=== PATIENT | male | born 1965 | race Caucasian/White ===

== ENCOUNTER 2016-07-18 23:16 | Emergency (ER) | payer BC ==
--- NOTE | ~2016-07-18 | CT16 ---
STS. [facility] A Service of [facility] & [facility] / [facility] RADIOLOGY TEXT RESULTS PATIENT: JEWELS FORTUNE LOCATION: SED : [birth year] UNIT #: [id number] AGE: [address]: Jim Ulrich MD SEX: M ORDER DR: [id number] [address] [address] [id number] E MR#: [id number] Acc #: [id number] NAME: JEWELS FORTUNE : 1965 SEX: M STUDY DATE/TIME: 07/18/2016 23:59 UNIT: SED ROOM: STUDY DESCRIPTION: CT Angio Chest for PE Attending Physician: Jim Ulrich M.D. Ordering Physician: Jim Ulrich M.D. Primary Care Physician: Kaleb Quiñonez M.D. MEDICAL IMAGING REPORT This report is preliminary unless electronic signature is present. EXAM CT chest with contrast, pulmonary arteriography protocol, 07/18/2016 HISTORY 51-year-old male in the ED complaining of new onset shortness of air with cough and congestion beginning earlier today. Clinical asthma attack. Elevated D-dimer is noted. He has a prior history of coronary artery disease with stent placement. TECHNIQUE CT examination of the chest with IV contrast using pulmonary arteriography protocol. 3-D CTA images of the pulmonary arteries were reformatted in multiple planes. This CT exam was performed with one or more of the following radiation dose reduction techniques: Automatic exposure control, adjustment of mA and/or kV according to patient size, and iterative reconstruction. FINDINGS The examination is technically limited due to delayed contrast bolus timing, resulting in preferential opacification of the left heart and aorta rather than the right heart and pulmonary arteries. No pulmonary artery thrombus is present within the main pulmonary arteries on the right or left, or the largest central pulmonary arteries. Medium and smaller pulmonary arteries within the mid and peripheral lung zones cannot be assessed on this exam. Thoracic aorta is normal in caliber. Heart size normal. No pericardial effusion. The lungs are expanded and clear. No visible pulmonary infiltrates, pneumothorax or pleural effusion. No suspicious mass or adenopathy within the chest. Limited upper abdominal images show a food-distended stomach. Cholecystectomy. [facility] A Service of [facility] & [facility] / [facility] RADIOLOGY TEXT RESULTS PATIENT: JEWELS FORTUNE LOCATION: [place] : [birth year] UNIT #: [id number] AGE: [address]: Jim Ulrich MD SEX: M ORDER DR: IMPRESSION 1. Nondiagnostic examination for the exclusion of pulmonary embolism in all but the main or large central pulmonary arteries. No central PE is seen. 2. No active disease in the chest. Dictated by... Mario Max M.D. THIS IS AN ELECTRONICALLY VERIFIED REPORT Mario Max M.D. at 07/19/2016 6:01 AM EMERITA/dann TD: 07/19/2016 00:41 JOB #: [id number] MEDICAL IMAGING REPORT Page 1 of 1
--- NOTE | ~2016-07-18 | EKG ---
PATIENT: JEWELS FORTUNE UNIT #: [id number] Ventricular Rate: 86 BPM Atrial Rate: 86 BPM P-R Interval: 176 ms QRS Duration: 96 ms Q-T Interval: 388 ms QTC Calculation(Bezet): 464 ms P Ladd: 37 degrees Calculated R Ladd: -55 degrees Calculated T Ladd: 57 degrees Diagnosis Line: Normal sinus rhythm Diagnosis Line: Pulmonary disease pattern Diagnosis Line: Left anterior fascicular block Nonspecific ST Diagnosis Line: abnormality Diagnosis Line: Abnormal ECG Diagnosis Line: No previous ECGs available Diagnosis Line: Confirmed by TAVO ARIAS MD ([id number]) on 07/19/2016 Diagnosis Line: 2:48:53 PM INTERPRETING MD: JUANA DUKE
--- NOTE | ~2016-07-18 | CR72 ---
[facility]. [facility] A Service of [facility] & [facility] RADIOLOGY TEXT RESULTS PATIENT: JEWELS FORTUNE LOCATION: SED : [birth year] UNIT #: [id number] AGE: [address]: Jim Ulrich MD SEX: M ORDER DR: [id number] [address] [address] [id number] E MR#: [id number] Acc #: [id number] NAME: JEWELS FORTUNE : 1965 SEX: M STUDY DATE/TIME: 07/18/2016 23:28 UNIT: SED ROOM: STUDY DESCRIPTION: CR Chest Single View Portable Attending Physician: Jim Ulrich M.D. Ordering Physician: Jim Ulrich M.D. Primary Care Physician: Kaleb Quiñonez M.D. MEDICAL IMAGING REPORT This report is preliminary unless electronic signature is present. EXAM Chest x-ray 07/18/2016 HISTORY 51-year-old male in the ED complaining of new onset cough, congestion and shortness of air today. TECHNIQUE AP portable chest x-ray. FINDINGS Heart size and pulmonary vascularity are normal. The lungs appear clear. No visible pulmonary infiltrate or pleural effusion. No change since 12/16/2014. IMPRESSION Negative chest. Dictated by... Mario Max M.D. THIS IS AN ELECTRONICALLY VERIFIED REPORT Mario Max M.D. at 07/19/2016 6:01 AM EMERITA/dann TD: 07/19/2016 00:02 JOB #: [id number] MEDICAL IMAGING REPORT Page 1 of 1
[2016-07-18 23:04] LABS: BASOPHIL# 0.1 X10e3 (0-0.3); DIFF IND NO; EOSINOPHIL# 0.1 X10e3 (0-0.7); EOSINOPHIL% 1.3 % (0.0-7.0); HEMATOCRIT 42.1 % (38.0-50.0); HEMOGLOBIN 14.8 gm/dL (13.0-16.0); LYMPHOCYTE# 2.6 X10e3 (1.0-3.5); LYMPHOCYTE% 34.3 % (17.0-45.0); MEAN CELL VOLUME 85.2 FL (83-96); MEAN CORPUSCULAR HGB CONC 35.2 g/dL (30-36); MEAN PLATELET VOLUME 8.9 FL (6.5-11.5); MONOCYTE# 0.5 X10e3 (0-1.0); NEUTROPHIL# 4.3 X10e3 (1.5-7.1); NEUTROPHIL% 56.4 % (40-75); PLATELET COUNT 206 X10e3 (140-420); RED BLOOD COUNT 4.94 X10e (3.90-5.60); RED CELL DISTRIBUTION WIDTH 13.1 % (11.0-15.5); WHITE BLOOD COUNT 7.7 X10e3 (4.0-10.5)
[2016-07-18 23:06] LABS: INR 0.9; PROTHROMBIN TIME (PATIENT) 10.3 SECONDS (9.5-12.4)
[2016-07-18 23:07] LABS: POC - CKMB <1.0 ng/mL (0.0-7.9); POC - TROPONIN <0.05 ng/mL (<=0.05)
[2016-07-18 23:13] LABS: BILIRUBIN,TOTAL 0.3 mg/dL (0.2-2.0); CREATININE SERUM 0.7 mg/dL (0.6-1.4); GLOM FILT RATE Estimated 110.9 mL/min (>60); PARTIAL THROMBOPLASTIN TIME 26.9 SECONDS (25.6-38.1); POTASSIUM 3.5 mmol/L (3.5-5.1); PROTEIN TOTAL SERUM 7.1 g/dL (6.0-8.3)
[~2016-07-18 23:16] MED LIST: ACCUPRIL; ACCUPRIL PO; ACCUPRIL10 MG PO; ALLEGRA; ALLEGRA PO; AMOXICILLIN500 M1; ASPIRIN PO; ASPIRIN81 M1 PO; AUGMENTIN 400-100 M1 PO; BACTROBAN15 GM TOP; CIPRO PO; CLEOCIN HCL300 M1 PO; CLEOCIN PO; CRESTOR; CRESTOR PO; FLEXERIL10 MG PO; GLUCOPHAGE XR500 MG PO; GLUCOTROL XL PO; IMDUR PO; IMDUR-ER30 MG PO; IMDUR120 MG; INSULIN R; LANTUS100 U/M1; LANTUS100 U/ML; LANTUS100 U/ML SUBQ; LOPID600 MG; LOPID600 MG PO; LOPRESSOR PO; LORTAB 5/500 TA1 TA1 PO; M.V.I. ADULT10 ML; MEDROL DOSEPAK4 MG; NITROGLYCERIN0.4 MG SL; NITROGYLCERIN SUBLINGUAL; NOVOLOG100 U/M2; PLAVIX; PREDNISONE5 MG/5 ML PO; ST. JOSEPH ASP325 MG; TAZTIA XT; TAZTIA XT300 MG PO; TOPROL XL50 MG; TRAMADOL HCL50 M1 PO; ZETIA; ZETIA PO
== END 2016-07-19 01:41 | disposition home or self-care (01) ==
LOC: SED 23:16
DX: J45.901 Unspecified asthma with (acute) exacerbation (principal); I10 Essential (primary) hypertension; E78.5 Hyperlipidemia, unspecified; E11.9 Type 2 diabetes mellitus without complications; Z86.79 Personal history of other diseases of the circulatory system; Z90.49 Acquired absence of other specified parts of digestive tract; Z87.891 Personal history of nicotine dependence; Z88.1 Allergy status to other antibiotic agents; Z88.8 Allergy status to other drugs, medicaments and biological substances; Z79.899 Other long term (current) drug therapy; Z79.82 Long term (current) use of aspirin; Z79.4 Long term (current) use of insulin
CPT/HCPCS: 36415; 71010; 71275; 80053; 82553; 82947; 84484; 85025; 85379; 85610; 85730; 93005; 94640; 96374; 99284; J2930; Q9967